=== PATIENT | male | born 1955 | race African-American/Black ===

== ENCOUNTER 2016-10-09 16:06 | Emergency (ER) | payer BC ==
[2016-10-09 16:10] VITALS: BP 116/77
--- NOTE | 2016-10-09 16:38 | UC ---
Respiratory Complaint HPI - HPI Summary HPI Summary: The patient comes in today for: 1. Sinus congestion, rhinitis, body aches, cough, scratchy eyes: Onset: 2 days ago. Palliative/provocative: Nothing makes his symptoms better or worse. Quality: Fullness in sinuses, soreness in throat, and aching joints. Region: Sinuses Severity: 2/10 only with coughing (abdominal pain). Time: Pain in abdomen lasts a few second. Associated symptoms: Fevers: None taken at home. Rhinitis: White. Cough production: White. Dyspnea: Present, Wheezing: NOne. Previous lung disease: None. * - History of Current Complaint Chief Complaint: UCRespiratory Stated Complaint: SINUS CONGESTION Time Seen by Provider: 10/09/16 16:32 Hx Obtained From: Patient - Allergies/Home Medications Allergies/Adverse Reactions: Allergies Allergy/AdvReac Type Severity Reaction Status Date / Time No Known Allergies Allergy Verified 10/09/16 16:09 Home Medications: Home Medications Rosuvastatin Calcium [Crestor] 40 mg PO DAILY 10/09/16 [History Confirmed ] PMH/Surg Hx/FS Hx/Imm Hx Previously Healthy: No Endocrine History: Dyslipidemia Cardiovascular History: Hypertension Psychological History: Depression - Anger management. - Surgical History Surgical History: Yes Surgery Procedure, Year, and Place: Left knee repair. Two cardiac stents. Umbilical Hernia repair - Family History Known Family History: Positive: Hypertension, Diabetes - Social History Occupation: Retired Alcohol Use: Occasionally Alcohol Amount: 1 beer every two days or so. Substance Use Type: None Smoking Status (MU): Current Some Day Smoker Type: Cigars Have You Smoked in the Last Year: Yes Household Exposure Type: Cigars - Immunization History Most Recent Influenza Vaccination: 2009 Most Recent Tetanus Shot: > 10 years Most Recent Pneumonia Vaccination: never Review of Systems Constitutional: Negative Skin: Negative Eyes: Negative ENT: Sore Throat, Nasal Discharge Respiratory: Cough Gastrointestinal: Abdominal Pain Genitourinary: Negative All Other Systems Reviewed And Are Negative: Yes Physical Exam Triage Information Reviewed: Yes Appearance: Well-Appearing, No Pain Distress, Well-Nourished Vital Signs: Initial Vital Signs Temp 99.5 F 10/09/16 16:08 Pulse 95 10/09/16 16:08 Resp 16 10/09/16 16:08 BP 116/77 10/09/16 16:08 Pulse Ox 99 10/09/16 16:08 Vital Signs Reviewed: Yes Eyes: Positive: Conjunctiva Clear. Negative: Discharge ENT: Positive: Hearing grossly normal. Negative: Pharyngeal erythema, Nasal congestion, TM bulging, TM dull, TM red, Tonsillar swelling, Tonsillar exudate Dental: Negative: Gross Decay/Caries @, Dental Fracture @ Neck: Positive: Supple, Nontender, No Lymphadenopathy. Negative: Nuchal Rigidity Respiratory: Positive: Chest non-tender, Lungs clear, No respiratory distress, No accessory muscle use. Negative: Crackles, Wheezing Cardiovascular: Positive: RRR, No Murmur Abdomen Description: Positive: Nontender, No Organomegaly, Soft. Negative: Distended, Guarding Musculoskeletal: Positive: Strength Intact, ROM Intact Neurological: Positive: Alert, Muscle Tone Normal. Negative: Lethargic Psychological: Positive: Age Appropriate Behavior, Consolable Skin: Negative: rashes, breakdown UC Diagnostic Evaluation - Laboratory O2 Sat by Pulse Oximetry: 99 Respiratory Course/Dx - Course Course Of Treatment: Patient told that at this time he most likely has a viral infection. He stated that he would like an antibiotic in the event he gets worse so he does not have to come back for a second appointment. - Differential Dx/Diagnosis Provider Diagnoses: Upper respiratory infection. sinusitis. bronchitis Discharge - Discharge Plan Condition: Stable Disposition: HOME Patient Education Materials: Upper Respiratory Infection (ED) Referrals: Miguel Small MD [Primary Care Provider] - 1 Week
== END 2016-10-09 16:59 | disposition home or self-care (01) ==
LOC: UCEAST 16:06
DX: J06.9 Acute upper respiratory infection, unspecified (principal); J32.9 Chronic sinusitis, unspecified; J40 Bronchitis, not specified as acute or chronic; E78.5 Hyperlipidemia, unspecified; I10 Essential (primary) hypertension
CPT/HCPCS: 99211; G0463

== ENCOUNTER 2017-08-08 22:14 | Emergency (ER) | payer BC ==
[2017-08-08] MEDS ORDERED: NS 0.9% 1000 ML* 1,000 ML IV ONE (23:05)
[2017-08-08 23:45] LABS: ABS Basophils 0.1 10^3/ul (0-0.2); ABS Eosinophils 0 10^3/ul (0-0.6); ABS Lymphocytes 0.4 10^3/ul (1.0-4.8); ABS Monocytes 0.5 10^3/ul (0-0.8); ABS Neutrophils 4.7 10^3/ul (1.5-7.7); ABS Nucleated RBC 0 10^3/ul; Eosinophil % 0.3 % (0-6); Hematocrit 43 % (42-52); Hemoglobin 14.8 g/dl (14.0-18.0); Lymphocyte % 6.3 % (25-47); Mean Corpuscular HGB Conc 34 g/dl (31-36); Mean Corpuscular Hemoglobin 30 pg (27-31); Mean Corpuscular Volume 88 fL (80-94); Mean Platelet Volume 7.5 um3 (7.4-10.4); Nucleated Red Blood Cells % 0; Platelet Count 157 10^3/ul (150-450); Red Blood Count 4.88 10^6/ul (4.0-5.4); Red Cell Distribution Width 13 % (10.5-15); White Blood Count 5.7 10^3/ul (3.5-10.8)
[2017-08-09 00:02] LABS: EGFR Non-African American 52.7 (>60)
[2017-08-09 00:17] VITALS: BP 123/76
[2017-08-09 01:12] LABS: INR 0.99 (0.77-1.02)
--- NOTE | 2017-08-09 02:30 | ED ---
Jose Steele Stephanie, scribed for Olivier Irvin MD on 08/08/17 at 2321 . Complex/Multi-Sys Presentation - HPI Summary HPI Summary: The pt is a 61 y/o M presenting to the ED with c/o syncope that occurred at 12: 00 today. Symptoms include lightheadedness, cough, CP, rhinorrhea, sleep disturbances, nasal congestion, diaphoresis and fever. The pt states he has had flu symptoms for the past 4 days. Per , the pt was unresponsive for 1 minute. When we returned to consciousness, he was dazed. The pt denies prior occurrences of syncope. The pt reports head and cobb trauma with syncope. - History Of Current Complaint Chief Complaint: EDSyncope Time Seen by Provider: 08/08/17 22:29 Hx Obtained From: Patient, Family/Hand Ii Blocker - Onset/Duration: Sudden Onset, Lasting Minutes - 1, Resolved Timing: Intermittent, Lasting:, Minutes - 1 Severity Currently: Mild Associated Signs And Symptoms: Positive: Cough, Chest Pain, Fever, Diaphoresis, Other - lightheadedness, rhinorrhea, sleep disturbances, nasal congestion - Allergies/Home Medications Allergies/Adverse Reactions: Allergies Allergy/AdvReac Type Severity Reaction Status Date / Time No Known Allergies Allergy Verified 08/08/17 22:31 PMH/Surg Hx/FS Hx/Imm Hx Endocrine/Hematology History: Denies: Hx Diabetes, Hx Thyroid Disease Cardiovascular History: Reports: Hx Angina, Hx Coronary Artery Disease - STENT 2009, Hx Hypertension, Hx Myocardial Infarction - 2009 Denies: Hx Hypercholesterolemia, Hx Pacemaker/ICD, Hx Peripheral Vascular Disease Respiratory History: Denies: Hx Asthma, Hx Chronic Obstructive Pulmonary Disease (COPD) GI History: Denies: Hx Ulcer Musculoskeletal History: Denies: Hx Arthritis, Hx Rheumatoid Arthritis, Hx Osteoporosis Sensory History: Reports: Hx Contacts or Glasses Denies: Hx Cataracts, Hx Glaucoma Opthamlomology History: Reports: Hx Contacts or Glasses Denies: Hx Cataracts, Hx Glaucoma Neurological History: Denies: Hx Headaches, Hx Seizures, Hx Transient Ischemic Attacks (TIA) Psychiatric History: Denies: Hx Anxiety, Hx Depression - Surgical History Surgery Procedure, Year, and Place: Left knee repair. Two cardiac stents. Umbilical Hernia repair Hx Anesthesia Reactions: No Infectious Disease History: No Infectious Disease History: Denies: Hx Clostridium Difficile, Hx Hepatitis, Hx Human Immunodeficiency Virus (HIV), Hx of Known/Suspected MRSA, Hx Shingles, Hx Tuberculosis, Hx Known/ Suspected VRE, Hx Known/Suspected VRSA, History Other Infectious Disease, Traveled Outside the [place] in Last 30 Days - Family History Known Family History: Positive: Hypertension, Diabetes - Social History Occupation: Retired Lives: With Family Alcohol Use: Rare Alcohol Amount: 1 beer every two days or so. Hx Substance Use: Yes - alcohol Substance Use Type: Reports: None Hx Tobacco Use: Yes Smoking Status (MU): Current Some Day Smoker Type: Cigars Have You Smoked in the Last Year: Yes Review of Systems Positive: Fever, Skin Diaphoresis, Other - sleep disturbances Positive: Nasal Discharge, Other - nasal congestion Positive: Chest Pain Positive: Cough Neurological: Other - lightheadedness Positive: Syncope All Other Systems Reviewed And Are Negative: Yes Physical Exam - Summary Physical Exam Summary: VITAL SIGNS: Reviewed. GENERAL: Patient is a well-developed and nourished MALE who is lying comfortable in the stretcher. Patient is not in any acute respiratory distress. HEAD AND FACE: No signs of trauma. No ecchymosis, hematomas or skull depressions. No sinus tenderness. EYES: PERRLA, EOMI x 2, No injected conjunctiva, no nystagmus. EARS: Hearing grossly intact. Ear canals and tympanic membranes are within normal limits. MOUTH: Oropharynx within normal limits. NECK: Supple, trachea is midline, no adenopathy, no JVD, no carotid bruit, no c- spine tenderness, neck with full ROM. CHEST: Symmetric, no tenderness at palpation LUNGS: Clear to auscultation bilaterally. No wheezing or crackles. CVS: Regular rate and rhythm, S1 and S2 present, no murmurs or gallops appreciated. ABDOMEN: Soft, non-tender. No signs of distention. No rebound no guarding, and no masses palpated. Bowel sounds are normal. EXTREMITIES: FROM in all major joints, no edema, no cyanosis or clubbing. NEURO: Alert and oriented x 3. No acute neurological deficits. Speech is normal and follows commands. SKIN: Dry and warm Triage Information Reviewed: Yes Vital Signs On Initial Exam: Initial Vitals Temp Pulse Resp BP Pulse Ox 101.8 F 76 20 126/71 100 08/08/17 22:29 08/08/17 22:29 08/08/17 22:29 08/08/17 22:29 08/08/17 22:29 Vital Signs Reviewed: Yes Diagnostics - Vital Signs Vital Signs Temp Pulse Resp BP Pulse Ox 08/08/17 22:35 76 20 100 08/08/17 22:34 126/71 08/08/17 22:29 101.8 F 76 20 126/71 100 - Laboratory Result Diagrams: 08/08/17 23:35 08/08/17 23:35 Lab Statement: Any lab studies that have been ordered have been reviewed, and results considered in the medical decision making process. - Radiology CXR Xray Interpretation: No Acute Changes Radiology Interpretation Completed By: ED Physician - No acute disease. Pending official reading. - EKG 22:46 Cardiac Rate: NL EKG Rhythm: Sinus Rhythm - 80 BPM EKG Interpretation: Normal axis. Normal interval. No ischemic changes Complex Multi-Symp Course/Dx Course Of Treatment: The pt is a 61 y/o M presenting to the ED with c/o syncope that occurred at 12:00 today. The pt presented with cough and he had a brief syncopal episode. EKG nml ,cardiac marker remained nml sinus while in the ED. This is consistent with vasovagal. ED physician discussed low TSH with the pt and advised the pt to follow up with his PCP for thyroid function. - Diagnoses Provider Diagnoses: Vasovagal syncope, Postnasal drip Discharge - Sign-Out/Discharge Documenting (check all that apply): Discharge - Discharge Plan Condition: Stable Disposition: HOME Patient Education Materials: Syncope (ED), Postnasal Drip (DC) Referrals: Miguel Small MD [Primary Care Provider] - 2 Days Additional Instructions: RETURN TO EMERGENCY DEPARTMENT FOR ANY NEW OR WORSENING SYMPTOMS The documentation as recorded by the Jose angeles Stephanie accurately reflects the service I personally performed and the decisions made by , Olivier Irvin MD.
--- NOTE | 2017-08-09 07:32 | RAD ---
INDICATION: Cough. COMPARISON: Comparison is made with a prior study from November 10, 2013. TECHNIQUE: A portable view of the chest was obtained. FINDINGS: Cardiac and mediastinal contours appear to be within normal limits. The lungs are clear. No pleural effusion is seen. IMPRESSION: NO EVIDENCE FOR ACUTE DISEASE.
== END 2017-08-09 01:29 | disposition home or self-care (01) ==
LOC: ED 22:14
DX: R55 Syncope and collapse (principal); R09.82 Postnasal drip; I25.119 Atherosclerotic heart disease of native coronary artery with unspecified angina pectoris; I10 Essential (primary) hypertension; Z95.5 Presence of coronary angioplasty implant and graft; I25.2 Old myocardial infarction; Z72.0 Tobacco use
CPT/HCPCS: 36415; 71045; 80053; 83605; 83735; 84443; 84484; 85025; 85610; 85730; 93005; 96360; 99282

== ENCOUNTER 2018-05-10 14:12 | Emergency (ER) | payer BC ==
[2018-05-10] MEDS ORDERED: Aspirin 81 mg CHEW TAB* 81 MG TAB.CHEW PO ONE (14:20)
[2018-05-10 15:00] LABS: ABS Basophils 0.1 10^3/ul (0-0.2); ABS Eosinophils 0.2 10^3/ul (0-0.6); ABS Lymphocytes 1.8 10^3/ul (1.0-4.8); ABS Monocytes 0.5 10^3/ul (0-0.8); ABS Neutrophils 2.4 10^3/ul (1.5-7.7); ABS Nucleated RBC 0 10^3/ul; Eosinophil % 4.2 %; Hematocrit 48 % (42-52); Hemoglobin 16.4 g/dl (14.0-18.0); Lymphocyte % 36.3 %; Mean Corpuscular HGB Conc 34 g/dl (31-36); Mean Corpuscular Hemoglobin 31 pg (27-31); Mean Corpuscular Volume 90 fL (80-94); Mean Platelet Volume 7.8 fL (7.4-10.4); Nucleated Red Blood Cells % 0.1; Platelet Count 190 10^3/ul (150-450); Red Blood Count 5.32 10^6/ul (4.00-5.40); Red Cell Distribution Width 13 % (10.5-15)
[2018-05-10 15:05] LABS: INR 0.85 (0.77-1.02)
--- NOTE | 2018-05-10 15:08 | ED ---
HPI Chest Pain - HPI Summary HPI Summary: The patient is a 62 y/o M presenting to [facility] with a chief complaint of sudden onset diffuse chest tightness starting two days ago. The pain, which is currently rated 1/10 in severity, is not aggravated by exertion. He reports that the burning sensation is similar to when he had an OK, although the pain is more intermittent. He denies associated nausea, vomiting, diaphoresis, and dizziness. He had a stent placed after the OK, and he takes Aspirin and Metoprolol. Hx of HTN. He reports some current smoking, no substance use, and rare EtOH. - History of Current Complaint Chief Complaint: EDChestPainROMI Time Seen by Provider: 05/10/18 14:38 Hx Obtained From: Patient Onset/Duration: Started Days Ago - two days, Still Present Timing: Intermittent Initial Severity: Moderate Current Severity: Mild Pain Intensity: 1 Pain Scale Used: 0-10 Numeric Chest Pain Location: Diffuse Chest Pain Radiates: No Character: Burning Aggravating Factor(s): Nothing Alleviating Factor(s): Nothing Associated Signs and Symptoms: Negative: Dizziness, Diaphoresis, Nausea, Vomiting - Allergy/Home Medications Allergies/Adverse Reactions: Allergies Allergy/AdvReac Type Severity Reaction Status Date / Time No Known Allergies Allergy Verified 08/08/17 22:31 PMH/Surg Hx/FS Hx/Imm Hx Endocrine/Hematology History: Denies: Hx Diabetes, Hx Thyroid Disease Cardiovascular History: Reports: Hx Angina, Hx Coronary Artery Disease - STENT 2009, Hx Hypertension, Hx Myocardial Infarction - 2009 Denies: Hx Hypercholesterolemia, Hx Pacemaker/ICD, Hx Peripheral Vascular Disease Respiratory History: Denies: Hx Asthma, Hx Chronic Obstructive Pulmonary Disease (COPD) GI History: Denies: Hx Ulcer Musculoskeletal History: Denies: Hx Arthritis, Hx Rheumatoid Arthritis, Hx Osteoporosis Sensory History: Reports: Hx Contacts or Glasses Denies: Hx Cataracts, Hx Glaucoma Opthamlomology History: Reports: Hx Contacts or Glasses Denies: Hx Cataracts, Hx Glaucoma Neurological History: Denies: Hx Headaches, Hx Seizures, Hx Transient Ischemic Attacks (TIA) Psychiatric History: Denies: Hx Anxiety, Hx Depression - Surgical History Surgery Procedure, Year, and Place: Left knee repair. Two cardiac stents. Umbilical Hernia repair Hx Anesthesia Reactions: No Infectious Disease History: No Infectious Disease History: Denies: Hx Clostridium Difficile, Hx Hepatitis, Hx Human Immunodeficiency Virus (HIV), Hx of Known/Suspected MRSA, Hx Shingles, Hx Tuberculosis, Hx Known/ Suspected VRE, Hx Known/Suspected VRSA, History Other Infectious Disease, Traveled Outside the [place] in Last 30 Days - Family History Known Family History: Positive: Hypertension, Diabetes - Social History Alcohol Use: None Alcohol Amount: 1 beer every two days or so. Hx Substance Use: Yes - alcohol Substance Use Type: Reports: None Hx Tobacco Use: Yes Smoking Status (MU): Light Every Day Tobacco Smoker Type: Cigars Have You Smoked in the Last Year: Yes Review of Systems Negative: Skin Diaphoresis Positive: Chest Pain - tightness with burning sensation Negative: Vomiting, Nausea Neurological: Other - NEGATIVE: dizziness All Other Systems Reviewed And Are Negative: Yes Physical Exam - Summary Physical Exam Summary: VITAL SIGNS: Reviewed. GENERAL: Patient is a well-developed and nourished male who is lying comfortable in the stretcher. Patient is not in any acute respiratory distress. HEAD AND FACE: No signs of trauma. No ecchymosis, hematomas or skull depressions. No sinus tenderness. EYES: PERRLA, EOMI x 2, No injected conjunctiva, no nystagmus. EARS: Hearing grossly intact. Ear canals and tympanic membranes are within normal limits. MOUTH: Oropharynx within normal limits. NECK: Supple, trachea is midline, no adenopathy, no JVD, no carotid bruit, no c- spine tenderness, neck with full ROM. CHEST: Symmetric, no tenderness at palpation LUNGS: Clear to auscultation bilaterally. No wheezing or crackles. CVS: Regular rate and rhythm, S1 and S2 present, no murmurs or gallops appreciated. ABDOMEN: Soft, non-tender. No signs of distention. No rebound no guarding, and no masses palpated. Bowel sounds are normal. EXTREMITIES: FROM in all major joints, no edema, no cyanosis or clubbing. NEURO: Alert and oriented x 3. No acute neurological deficits. Speech is normal and follows commands. SKIN: Dry and warm Triage Information Reviewed: Yes Vital Signs On Initial Exam: Initial Vitals Temp Pulse Resp BP Pulse Ox 97.8 F 72 18 149/85 99 05/10/18 14:23 05/10/18 14:23 05/10/18 14:23 05/10/18 14:23 05/10/18 14:23 Vital Signs Reviewed: Yes Diagnostics - Vital Signs Vital Signs Temp Pulse Resp BP Pulse Ox 05/10/18 14:23 97.8 F 72 18 149/85 99 - Laboratory Result Diagrams: 05/10/18 14:48 05/10/18 14:48 Lab Statement: Any lab studies that have been ordered have been reviewed, and results considered in the medical decision making process. - Radiology CXR Radiology Interpretation Completed By: Radiologist Summary of Radiographic Findings: No active cardiopulmonary disease is noted. ED physician has reviewed this report. - EKG 14:14 Cardiac Rate: NL - 64 BPM EKG Rhythm: Sinus Rhythm Summary of EKG Findings: No ST elevations. Re-Evaluation - Re-Evaluation First Eval Re-Evaluation Time: 18:20 Change: Improved Comment: I spoke with the patient concerning results and discharge home. Chest Pain Course/Dx - Course Course Of Treatment: The patient was found to have increased BP in the ED. The patient will follow up with PCP for better control of BP. Assessment/Plan: The patient is a 62 y/o M presenting to [facility] with a chief complaint of sudden onset diffuse chest tightness starting two days ago. The pain, which is currently rated 1/10 in severity, is not aggravated by exertion. He reports that the burning sensation is similar to when he had an OK, although the pain is more intermittent. He denies associated nausea, vomiting, diaphoresis, and dizziness. He had a stent placed after the OK, and he takes Aspirin and Metoprolol. Hx of HTN. He reports some current smoking, no substance use, and rare EtOH. Blood work without any significant abnormality. Troponin is 0.00. Chest x-ray impression: no active cardiopulmonary disease noted. Second troponin 4 hours later is also 0.00. All the patients symptoms have resolved. The patient is not symptomatic. Heart score is 2 which is a lawsuit suspicion for acute, syndrome. I discussed all the findings and test results with the patient. Patient was instructed to return to the emergency room immediately if any of the symptoms return or worsens. Plan of care was discussed with the patient and understands and agrees. All questions were answered at patient satisfaction. There were no further complaints or concerns. Lung exam before discharge: CTA B/L. Good air exchange. No wheezing or crackles heard. CVS: S1 and S2 present. No murmurs appreciated. Patient is alert and oriented x 3. Patient is hemodynamically stable. Patient will be discharged home with follow up PCP in the next 2-3 days - Chest Pain Differential Diagnosis/HQI/PQRI: Acute OK, ACS, Angina, CHF, Chest Wall, GI Disease, Lower Respiratory Infection - Diagnoses Provider Diagnoses: Chest pain Discharge - Sign-Out/Discharge Documenting (check all that apply): Patient Departure - Patient will be discharged home. - Discharge Plan Condition: Stable Disposition: HOME Patient Education Materials: Chest Pain (ED) Referrals: Miguel Small MD [Primary Care Provider] - 3 Days Additional Instructions: FOLLOW UP WITH YOUR PRIMARY CARE PROVIDER WITHIN 2-3 DAYS FOR HIGH BLOOD PRESSURE NOTED TODAY. RETURN TO THE ED FOR ANY WORSENING OR NEW SYMPTOMS. - Billing Disposition and Condition Condition: STABLE Disposition: Home - Attestation Statements Document Initiated by Laney: Yes Documenting Scribe: Reyna Lockett Provider For Whom Laney is Documenting (Include Credential): Dr. Kiko Gleason MD Scribe Attestation: Reyna Steele scribed for Dr. Kiko Gleason MD on 05/10/18 at 1826. Scribe Documentation Reviewed: Yes Provider Attestation: The documentation as recorded by the Reyna angeles accurately reflects the service I personally performed and the decisions made by me, Dr. Kiko Gleason MD Status of Scrbrandi Document: Viewed
[2018-05-10 15:25] LABS: Albumin 4.5 g/dL (3.2-5.2); Albumin/Globulin Ratio 1.6 (1-3); BUN/Creatinine Ratio 14.3 (8-20); Calcium 9.3 mg/dL (8.6-10.3); EGFR Non-African American 66.9 (>60); Globulin 2.8 g/dL (2-4); Potassium 4.1 mmol/L (3.5-5.0); Total Bilirubin 0.3 mg/dL (0.2-1.0); Total Protein 7.3 g/dL (6.4-8.9)
[2018-05-10 18:25] VITALS: BP 134/85
== END 2018-05-10 18:26 | disposition home or self-care (01) ==
LOC: ED 14:12
DX: R07.9 Chest pain, unspecified (principal); I25.2 Old myocardial infarction; I10 Essential (primary) hypertension; I25.10 Atherosclerotic heart disease of native coronary artery without angina pectoris; F17.299 Nicotine dependence, other tobacco product, with unspecified nicotine-induced disorders
CPT/HCPCS: 36415; 71046; 80053; 83605; 83880; 84484; 85025; 85610; 93005; 99283; A9270-GY

== ENCOUNTER 2018-08-07 19:52 | Emergency (ER) | payer BC ==
[2018-08-07 22:59] LABS: ABS Basophils 0 10^3/ul (0-0.2); ABS Eosinophils 0 10^3/ul (0-0.6); ABS Lymphocytes 1.1 10^3/ul (1.0-4.8); ABS Monocytes 0.5 10^3/ul (0-0.8); ABS Neutrophils 7.2 10^3/ul (1.5-7.7); ABS Nucleated RBC 0 10^3/ul; Eosinophil % 0.3 %; Hematocrit 46 % (36-46); Hemoglobin 15.5 g/dL (14.0-18.0); Lymphocyte % 12.4 %; Mean Corpuscular HGB Conc 34 g/dL (31-36); Mean Corpuscular Hemoglobin 31 pg (27-31); Mean Corpuscular Volume 91 fL (80-94); Mean Platelet Volume 7.9 fL (7.4-10.4); Nucleated Red Blood Cells % 0.1; Platelet Count 184 10^3/uL (150-450); Red Blood Count 5.06 10^6 /uL (4.18-5.48); Red Cell Distribution Width 14 % (10.5-15); White Blood Count 8.9 10^3/uL (3.5-10.8)
[2018-08-07 23:06] LABS: INR 0.87 (0.77-1.02)
[2018-08-07 23:15] LABS: Albumin 4.3 g/dL (3.2-5.2); Albumin/Globulin Ratio 1.5 (1-3); BUN/Creatinine Ratio 14.2 (8-20); Calcium 9.5 mg/dL (8.6-10.3); EGFR Non-African American 57.8 (>60); Globulin 2.8 g/dL (2-4); Magnesium 2.2 mg/dL (1.9-2.7); Potassium 4.5 mmol/L (3.5-5.0); Total Bilirubin 0.3 mg/dL (0.2-1.0); Total Protein 7.1 g/dL (6.4-8.9)
[2018-08-07 23:47] LABS: TSH (Thyroid Stimulating Horm) 0.54 mcIU/mL (0.34-5.60)
[2018-08-08] MEDS ORDERED: Iodixanol* (CONTRAST) 320 MG/ML 100 ML SDV IV ONE (00:32)
--- NOTE | 2018-08-08 01:55 | ED ---
Syncope/Near Syncope - HPI Summary HPI Summary: 62-year-old male presents with syncope today. He states that he went fishing and when came back he sat on a bench. He states that he felt very woozy and nauseous. He states that he got tunnel vision and then passed out for a couple seconds. States when he came back to he vomited. He states he is not feeling lightheaded anymore. He denies any chest pain or shortness of breath. No palpitations. No abdominal pain. no other symptoms. had normal stress test a year ago per patient. - History Of Current Complaint Chief Complaint: EDSyncope Time Seen by Provider: 08/07/18 22:30 - Allergies/Home Medications Allergies/Adverse Reactions: Allergies Allergy/AdvReac Type Severity Reaction Status Date / Time No Known Allergies Allergy Verified 08/07/18 19:56 PMH/Surg Hx/FS Hx/Imm Hx Endocrine/Hematology History: Denies: Hx Diabetes, Hx Thyroid Disease Cardiovascular History: Reports: Hx Angina, Hx Coronary Artery Disease - STENT 2009, Hx Hypertension, Hx Myocardial Infarction - 2009 Denies: Hx Hypercholesterolemia, Hx Pacemaker/ICD, Hx Peripheral Vascular Disease Respiratory History: Denies: Hx Asthma, Hx Chronic Obstructive Pulmonary Disease (COPD) GI History: Denies: Hx Ulcer Musculoskeletal History: Denies: Hx Arthritis, Hx Rheumatoid Arthritis, Hx Osteoporosis Sensory History: Reports: Hx Contacts or Glasses Denies: Hx Cataracts, Hx Glaucoma Opthamlomology History: Reports: Hx Contacts or Glasses Denies: Hx Cataracts, Hx Glaucoma Neurological History: Denies: Hx Headaches, Hx Seizures, Hx Transient Ischemic Attacks (TIA) Psychiatric History: Denies: Hx Anxiety, Hx Depression - Surgical History Surgery Procedure, Year, and Place: Left knee repair. Two cardiac stents. Umbilical Hernia repair Hx Anesthesia Reactions: No Infectious Disease History: No Infectious Disease History: Denies: Hx Clostridium Difficile, Hx Hepatitis, Hx Human Immunodeficiency Virus (HIV), Hx of Known/Suspected MRSA, Hx Shingles, Hx Tuberculosis, Hx Known/ Suspected VRE, Hx Known/Suspected VRSA, History Other Infectious Disease, Traveled Outside the [place] in Last 30 Days - Family History Known Family History: Positive: Hypertension, Diabetes - Social History Alcohol Use: Occasionally Alcohol Amount: 1 beer every two days or so. Hx Substance Use: Yes - alcohol Substance Use Type: Reports: None Hx Tobacco Use: Yes Smoking Status (MU): Light Every Day Tobacco Smoker Type: Cigars Have You Smoked in the Last Year: Yes Review of Systems Negative: Fever Negative: Chest Pain Negative: Shortness Of Breath Positive: Syncope All Other Systems Reviewed And Are Negative: Yes Physical Exam Triage Information Reviewed: Yes Vital Signs On Initial Exam: Initial Vitals Temp Pulse Resp BP Pulse Ox 97.1 F 72 16 90/64 96 08/07/18 19:55 08/07/18 19:55 08/07/18 19:55 08/07/18 19:55 08/07/18 19:55 Vital Signs Reviewed: Yes Appearance: Positive: Well-Appearing Skin: Positive: Warm, Dry Head/Face: Positive: Normal Head/Face Inspection Eyes: Positive: Normal, EOMI, JOEY, Conjunctiva Clear ENT: Positive: Normal ENT inspection, Pharynx normal, TMs normal Respiratory/Lung Sounds: Positive: Clear to Auscultation, Breath Sounds Present Cardiovascular: Positive: Normal, RRR Abdomen Description: Positive: Nontender, Soft Bowel Sounds: Positive: Present Musculoskeletal: Positive: Normal Neurological: Positive: Sensory/Motor Intact, Alert, Oriented to Person Place, Time, CN Intact II-III Psychiatric: Positive: Normal Diagnostics - Vital Signs Vital Signs Temp Pulse Resp BP Pulse Ox 08/08/18 01:06 64 22 115/73 95 08/08/18 01:00 68 24 95 08/08/18 00:36 66 24 138/73 96 08/08/18 00:03 95 08/08/18 00:00 65 23 95 08/07/18 23:44 70 19 96 08/07/18 23:36 67 23 132/77 96 08/07/18 23:06 72 23 136/84 97 08/07/18 23:00 66 24 97 08/07/18 22:36 74 22 119/72 93 08/07/18 22:06 65 18 122/71 96 08/07/18 19:55 97.1 F 72 16 90/64 96 - Laboratory Lab Results: Lab Results 08/07/18 08/07/18 08/07/18 Range/Units 22:53 22:53 22:53 WBC 8.9 (3.5-10.8) 10^3/uL RBC 5.06 (4.18-5.48) 10^6 /uL Hgb 15.5 (14.0-18.0) g/dL Hct 46 (36-46) % MCV 91 (80-94) fL MCH 31 (27-31) pg MCHC 34 (31-36) g/dL RDW 14 (10.5-15) % Plt Count 184 (150-450) 10^3/uL MPV 7.9 (7.4-10.4) fL Neut % (Auto) 81.1 % Lymph % (Auto) 12.4 % [place] % (Auto) 5.8 % Eos % (Auto) 0.3 % Baso % (Auto) 0.4 % Absolute Neuts (auto) 7.2 (1.5-7.7) 10^3/ul Absolute Lymphs (auto) 1.1 (1.0-4.8) 10^3/ul Absolute Monos (auto) 0.5 (0-0.8) 10^3/ul Absolute Eos (auto) 0 (0-0.6) 10^3/ul Absolute Basos (auto) 0 (0-0.2) 10^3/ul Absolute Nucleated RBC 0 10^3/ul Nucleated RBC % 0.1 INR (Anticoag Therapy) (0.77-1.02) D-Dimer, Quantitative (Less Than 230) ng/mL Sodium 138 (135-145) mmol/L Potassium 4.5 (3.5-5.0) mmol/L Chloride 106 (101-111) mmol/L Carbon Dioxide 27 (22-32) mmol/L Anion Gap 5 (2-11) mmol/L BUN 18 (6-24) mg/dL Creatinine 1.27 H (0.67-1.17) mg/dL Est GFR ( Amer) 70.0 (>60) Est GFR (Non-Af Amer) 57.8 (>60) BUN/Creatinine Ratio 14.2 (8-20) Glucose 139 H (70-100) mg/dL Lactic Acid 1.7 (0.5-2.0) mmol/L Calcium 9.5 (8.6-10.3) mg/dL Magnesium 2.2 (1.9-2.7) mg/dL Total Bilirubin 0.30 (0.2-1.0) mg/dL AST 21 (13-39) U/L ALT 23 (7-52) U/L Alkaline Phosphatase 67 (34-104) U/L Troponin I 0.00 (<0.04) ng/mL Total Protein 7.1 (6.4-8.9) g/dL Albumin 4.3 (3.2-5.2) g/dL Globulin 2.8 (2-4) g/dL Albumin/Globulin Ratio 1.5 (1-3) TSH 0.54 (0.34-5.60) mcIU/mL 08/07/18 Range/Units 22:53 WBC (3.5-10.8) 10^3/uL RBC (4.18-5.48) 10^6 /uL Hgb (14.0-18.0) g/dL Hct (36-46) % MCV (80-94) fL MCH (27-31) pg MCHC (31-36) g/dL RDW (10.5-15) % Plt Count (150-450) 10^3/uL MPV (7.4-10.4) fL Neut % (Auto) % Lymph % (Auto) % [place] % (Auto) % Eos % (Auto) % Baso % (Auto) % Absolute Neuts (auto) (1.5-7.7) 10^3/ul Absolute Lymphs (auto) (1.0-4.8) 10^3/ul Absolute Monos (auto) (0-0.8) 10^3/ul Absolute Eos (auto) (0-0.6) 10^3/ul Absolute Basos (auto) (0-0.2) 10^3/ul Absolute Nucleated RBC 10^3/ul Nucleated RBC % INR (Anticoag Therapy) 0.87 (0.77-1.02) D-Dimer, Quantitative 261 H (Less Than 230) ng/mL Sodium (135-145) mmol/L Potassium (3.5-5.0) mmol/L Chloride (101-111) mmol/L Carbon Dioxide (22-32) mmol/L Anion Gap (2-11) mmol/L BUN (6-24) mg/dL Creatinine (0.67-1.17) mg/dL Est GFR ( Amer) (>60) Est GFR (Non-Af Amer) (>60) BUN/Creatinine Ratio (8-20) Glucose (70-100) mg/dL Lactic Acid (0.5-2.0) mmol/L Calcium (8.6-10.3) mg/dL Magnesium (1.9-2.7) mg/dL Total Bilirubin (0.2-1.0) mg/dL AST (13-39) U/L ALT (7-52) U/L Alkaline Phosphatase (34-104) U/L Troponin I (<0.04) ng/mL Total Protein (6.4-8.9) g/dL Albumin (3.2-5.2) g/dL Globulin (2-4) g/dL Albumin/Globulin Ratio (1-3) TSH (0.34-5.60) mcIU/mL Result Diagrams: 08/07/18 22:53 08/07/18 22:53 Lab Statement: Any lab studies that have been ordered have been reviewed, and results considered in the medical decision making process. - CT cta CT Interpretation Completed By: Radiologist Summary of CT Findings: IMPRESSION: Negative CTA chest. No pulmonary embolism is identified. - EKG No standard instances Cardiac Rate: NL EKG Rhythm: Sinus Rhythm EKG Comparison: No Significant Change Summary of EKG Findings: sinus rhythm Course/Dx Course Of Treatment: 62-year-old male presents with syncope today. He states that he went fishing and when came back he sat on a bench. He states that he felt very woozy and nauseous. He states that he got tunnel vision and then passed out for a couple seconds. States when he came back to he vomited. He states he is not feeling lightheaded anymore. He denies any chest pain or shortness of breath. No palpitations. No abdominal pain. no other symptoms. On exam has normal neuro exam. EKG shows sinus rhythm. Troponin negative. D- dimer slightly elevated so got CTA. CTA normal. Patient denies any symptoms while in ED. We'll discharge have follow up primary. Patient understands agrees with plan. - Diagnoses Differential Diagnosis/HQI/PQRI: Positive: Coronary Artery Disease, Hypoglycemia , Hypovolemia, Pulmonary Embolism Provider Diagnoses: Syncope Discharge - Sign-Out/Discharge Documenting (check all that apply): Patient Departure Patient Received Moderate/Deep Sedation with Procedure: No - Discharge Plan Condition: Good Disposition: HOME Patient Education Materials: Syncope (ED) Referrals: Miguel Small MD [Primary Care Provider] - Additional Instructions: follow up with primary within 5 days Return to ED if develop any chest pain, SOB, or any new or worsening symptoms - Billing Disposition and Condition Condition: GOOD Disposition: Home
[2018-08-08 02:00] VITALS: BP 130/90
== END 2018-08-08 01:59 | disposition home or self-care (01) ==
LOC: ED 19:52
DX: R55 Syncope and collapse (principal); I10 Essential (primary) hypertension; I25.10 Atherosclerotic heart disease of native coronary artery without angina pectoris; I25.2 Old myocardial infarction; F17.210 Nicotine dependence, cigarettes, uncomplicated; Z95.5 Presence of coronary angioplasty implant and graft
CPT/HCPCS: 36415; 71275; 80053; 83605; 83735; 84443; 84484; 85025; 85379; 85610; 93005; 99283; Q9967

== ENCOUNTER 2018-11-09 05:43 | Inpatient (IN) | payer BC ==
--- NOTE | 2018-11-06 17:53 | HP ---
HISTORY AND PHYSICAL: DATE OF ADMISSION/SURGERY: 11/09/18 DATE OF OFFICE VISIT: 11/06/18 SURGEON: Elisa Davila MD * (DICTATED BY DAPHNE CARUSO) PROCEDURE: Left total hip arthroplasty. CHIEF COMPLAINT: Left hip pain. HISTORY OF PRESENT ILLNESS: Mr. Angelo is a 63-year-old gentleman with end- stage osteoarthritis of the left hip. He has failed conservative treatment and elected to proceed with a left total hip arthroplasty. PAST MEDICAL HISTORY: Hypertension, coronary artery disease, anxiety, high cholesterol, BPH, and a prior RI. PAST SURGICAL HISTORY: Hernia repair, left knee arthroscopy, and heart stent placement. CURRENT MEDICATIONS: 1. Rosuvastatin calcium 40 mg a day. 2. Lisinopril 10 mg a day. 3. Aspirin 81 mg a day. 4. Lexapro 20 mg a day. ALLERGIES: No known drug allergies. FAMILY HISTORY: Coronary artery disease, stroke, and MS. SOCIAL HISTORY: He is a 63-year-old gentleman, lives with his spouse. He smokes 1 to 2 cigars per day. Denies use of drugs. REVIEW OF SYSTEMS: A complete 14-point review of systems was reviewed with the patient. It was all negative or noncontributory. He denies history of DVT, PE , hepatitis, HIV, or anesthesia problems. PHYSICAL EXAMINATION GENERAL: He is well developed, well nourished, in no acute distress. VITAL SIGNS: He stands 5 feet 6 inches tall, weighs 173 pounds. His blood pressure is 118/78, his heart rate is 84. HEENT: Normocephalic, atraumatic. NECK: Supple. No palpable lymph nodes. PULMONARY: The lungs are clear to auscultation bilaterally. CARDIO: Regular rate and rhythm. Strong S1, S2. ABDOMEN: Soft, nontender, nondistended. NEUROLOGICAL: He is alert and oriented x3. MUSCULOSKELETAL: Left lower extremity: The skin is intact. There are no open wounds or abrasions. He walks with an antalgic-type gait favoring his left hip. He has decreased internal and external rotation of the left hip. He has a 2+ dorsalis pedis pulse. He is able to dorsiflex and plantarflex. ASSESSMENT AND PLAN: Mr. Angelo is a 63-year-old gentleman with severe end- stage osteoarthritis of the left hip. He has failed conservative treatment and elected to proceed with a left total hip arthroplasty. The surgery is scheduled for 11/09/[address] Davila discussed the risks and benefits of the surgery at today's visit and all of his questions were answered. He will follow up with Dr. Davila 2 weeks after the surgery. DAPHNE CARUSO [id number]/[facility] #: [id number] AROLDO
[~2018-11-09 05:43] MED LIST: Buffered Lidocaine 1% SYRIN* 1 ML/SYRINGE INTRADERM ONE; Tranexamic Acid 1,000 MG in NS 0.9% 50 ML* (outpatient use) IV SCH
--- OUTSIDE RECORDS SUMMARY | 2018-11-09 05:47 | XMS REPORT | Continuity of Care Document ---
:1955 External Reference #:[id number] Author Name Chaya Gutierrez Care Team Providers Name Role Phone Miguel Small MD Primary Care Physician Unavailable Payers Date Identification Numbers Payment Provider Subscriber Expires: 2013 Policy Number: [id number] [facility] Aneudy Ewing PayID: [id number] [address] [place] [address] Policy Number: [id number] [facility] Aneudy Ewing PayID: [id number] [address] [place] [address] Problems Active Problems Provider Date Localized, primary osteoarthritis of the pelvic Elisamachelle Davila M.D. Onset: region and thigh Old myocardial infarction Jyoti Holden M.D. Onset: 08/20/2016 Essential hypertension Jyoti Holden M.D. Onset: 06/04/2016 Tobacco user Jyoti Holden M.D. Onset: 02/05/2013 Benign essential hypertension Jyoti Holden M.D. Onset: 02/05/2013 Pure hypercholesterolemia Jyoti Holden M.D. Onset: 02/05/2013 Coronary arteriosclerosis Jyoti Holden M.D. Onset: 02/05/2013 Family History Date Family Member(s) Observation Comments General Diabetes Father [place] : (age 51 Years) Father due to [place] Mother Hypertension Mother Alive And Well Siblings 3 sisters, alive healthy no known CAD Siblings 1 brother age 42 No Known CAD Social History Type Date Description Comments Sex Unknown Marital Status Occupation Retired Occupation Teacher Tobacco Use Start: Unknown Former Cigarette Smoker Currently smokes End: Unknown cigars Smoking Status Reviewed: 11/06/18 Former Cigarette Smoker Currently smokes cigars ETOH Use Occasionally consumes alcohol Tobacco Use Start: Unknown Patient is a current smokes 2 cigars per smoker, smokes every day day Recreational Drug Use Denies Drug Use Exercise Type/Frequency Exercises sporadically Exercise Type/Frequency Walking few times week, 1 mile Allergies, Adverse Reactions, Alerts Active Allergies Reaction Severity Comments Date NKDA 06/04/2016 Environmental rag weed 02/05/2013 Medications Active Medications SIG Qnty Indications Ordering Provider Date Rosuvastatin Calcium 1 by mouth 90tabs Jyoti Holden M.D. 09/02/2016 40mg every day Tablets Lexapro 1 1/2 tabs PO 30tabs Unknown 20mg Tablets qd Lisinopril 1 by mouth Unknown 10mg Tablets every day Aspir-Low 1 by mouth Unknown 81mg Tablets DR every day History Medications Crestor 1 by mouth every 30tabs Jyoti Holden M.D. 09/02/2016 - 40mg Tablets day 09/02/2016 Simvastatin 1 tab by mouth 90tabs Jyoti Holden M.D. 01/10/2013 - 40mg every day 09/02/2016 Tablets Metoprolol Tartrate 1 po daily 180tabs Jyoti Holden M.D. 09/11/2012 - 10/04/2017 25mg Tablets Lisinopril 1 by mouth every 90tabs Jyoti Holden M.D. 02/15/2012 - 10mg Tablets day (pt no 09/21/2018 longer taking) Wellbutrin SR 1 po bid 180tabs Unknown - 150mg 02/05/2013 Tablets ER 12HR Plavix 1 po qd 30tabs Unknown - 75mg Tablets 02/05/2013 Nitrostat one sl q5min up 25tabs Unknown - 0.4mg Tablets to 3 doses prn 02/05/2013 Sub Aspirin 1 po qd Unknown - 81mg Tablets 09/21/2018 Simvastatin Unknown - 10/26/2018 Simvastatin 1 by mouth every Unknown - 40mg day 11/05/2018 Tablets Vital Signs Date Vital Result Comment 11/06/2018 11:54am Height 66.5 inches 5'6.50" Weight 173.00 lb BP Systolic 118 mmHg BP Diastolic 78 mmHg Body Temperature 97.7 F BMI (Body Mass Index) 27.5 kg/m2 10/27/2018 12:51pm Height 66.5 inches 5'6.50" Weight 174.00 lb Clothes/shoes Heart Rate 68 /min Radial BP Systolic Sitting 122 mmHg Lue reg cuff sit BP Diastolic Sitting 74 mmHg Lue reg cuff sit BP Systolic Standing 120 mmHg Lue reg cuff std BP Diastolic Standing 70 mmHg Lue reg cuff std BMI (Body Mass Index) 27.7 kg/m2 Ejection Fraction 55-60% Echo 09/30/2017 09/22/2018 2:41pm Height 66.5 inches 5'6.50" Weight 174.00 lb Heart Rate 72 /min BP Systolic 120 mmHg BP Diastolic 82 mmHg Respiratory Rate 16 /min Body Temperature 97.5 F Pain Level 3 BMI (Body Mass Index) 27.7 kg/m2 10/07/2017 1:43pm Height 66.5 inches 5'6.50" Weight 171.50 lb with shoes Heart Rate 68 /min BP Systolic Sitting 124 mmHg Rue reg cuff BP Diastolic Sitting 86 mmHg Rue reg cuff BP Systolic Standing 120 mmHg Rue reg cuff BP Diastolic Standing 84 mmHg Rue reg cuff Respiratory Rate 15 /min BMI (Body Mass Index) 27.3 kg/m2 Ejection Fraction 55-60% 09/30/2017-echo 08/20/2016 8:22am Height 66.5 inches 5'6.50" Weight 171.00 lb No shoes Heart Rate 66 /min BP Systolic Sitting 120 mmHg Rue reg cuff BP Diastolic Sitting 88 mmHg Rue reg cuff BP Systolic Standing 122 mmHg Rue reg cuff BP Diastolic Standing 84 mmHg Rue reg cuff Respiratory Rate 16 /min BMI (Body Mass Index) 27.2 kg/m2 Ejection Fraction 50-55% 10/28/2009-ech 06/04/2016 1:29pm Height 66.5 inches 5'6.50" Weight 166.00 lb w/o shoes Heart Rate 56 /min reg BP Systolic 130 mmHg Lue, reg cuff BP Diastolic 90 mmHg Lue, reg cuff BP Systolic Sitting 124 mmHg Rue, reg cuff BP Diastolic Sitting 88 mmHg Rue, reg cuff BP Systolic Standing 124 mmHg Rue BP Diastolic Standing 84 mmHg Rue Respiratory Rate 16 /min BMI (Body Mass Index) 26.4 kg/m2 Ejection Fraction 50-55% as of 10/28/09 echo 02/05/2013 2:59pm Height 66.50 inches 5'6.50" Weight 161.00 lb without shoes Heart Rate 5650 /min sit and stand HR reg BP Systolic Sitting 120 mmHg R arm reg cuff BP Diastolic Sitting 86 mmHg R arm reg cuff BP Systolic Standing 116 mmHg R arm reg cuff BP Diastolic Standing 80 mmHg R arm reg cuff Respiratory Rate 16 /min BMI (Body Mass Index) 25.6 kg/m2 Results Test Date Facility Test Result H/L Range Note Inr/Protime 10/27/2018 [facility] Inr 0.91 N 0.82-1.[address] [place] [address] [phone] Laboratory test 10/27/2018 [facility] Partial 34.0 seconds N 26.0-38.[address] [place] [address] PTT [phone] CBC Auto Diff 10/27/2018 [facility] White Blood 4.8 10^3/uL N 3.5-10.[address] [place] [address] [phone] Red Blood Count 5.43 10^6/uL N 4.18-5.48 Hemoglobin 16.4 g/dL N 14.0-18.0 Hematocrit 49 % N 42-52 Mean Corpuscular Volume 91 fL N 80-94 Mean Corpuscular Hemoglobin 30 pg N 27-31 Mean Corpuscular HGB Conc 33 g/dL N 31-36 Red Cell Distribution Width 13 % N 10-15 Platelet Count 185 10^3/uL N 150-450 Mean Platelet Volume 8.0 fL N 7.4-10.4 Abs Neutrophils 2.6 10^3/uL N 1.5-7.7 Abs Lymphocytes 1.4 10^3/uL N 1.0-4.8 Abs Monocytes 0.5 10^3/uL N 0-0.8 Abs Eosinophils 0.2 10^3/uL N 0-0.6 Abs Basophils 0.1 10^3/uL N 0-0.2 Abs Nucleated RBC 0.0 10^3/uL Granulocyte % 54.2 % Lymphocyte % 28.6 % Monocyte % 11.2 % Eosinophil % 4.8 % Basophil % 1.2 % Nucleated Red Blood Cells % 0.1 Comp Metabolic Panel 10/27/2018 [facility] Sodium 139 mmol/L N 135-[address] [place] [address] [phone] Potassium 4.4 mmol/L N 3.5-5.0 Chloride 105 mmol/L N 101-111 Co2 Carbon Dioxide 26 mmol/L N 22-32 Anion Gap 8 mmol/L N 2-11 Glucose 85 mg/dL N 70-100 Blood Urea Nitrogen 16 mg/dL N 6-24 Creatinine 1.15 mg/dL N 0.67-1.17 BUN/Creatinine Ratio 13.9 N 8-20 Calcium 9.8 mg/dL N 8.6-10.3 Total Protein 7.1 g/dL N 6.4-8.9 Albumin 4.4 g/dL N 3.2-5.2 Globulin 2.7 g/dL N 2-4 Albumin/Globulin Ratio 1.6 N 1-3 Total Bilirubin 0.60 mg/dL N 0.2-1.0 Alkaline Phosphatase 80 U/L N 34-104 Alt 25 U/L N 7-52 Ast 25 U/L N 13-39 Egfr Non- 64.7 >60 Egfr 78.2 >60 2 Urinalysis Profile 10/27/2018 [facility] Urine Color Yellow [address] [place] [address] [phone] Urine Appearance Clear Urine Specific [place] 1.016 N 1.010-1.030 Urine pH 5.0 N 5-9 Urine Urobilinogen Negative Negative Urine Ketones Negative Negative Urine Protein Negative Negative Urine Leukocytes Negative Negative Urine Blood 1+ Abnormal Negative Urine Nitrite Negative Negative Urine Bilirubin Negative Negative Urine Glucose Negative Negative Urine White Blood Cell Trace(0-5/hpf) Absent Urine Red Blood Cell 2+(6-10/hpf) Abnormal Absent Urine Bacteria Absent Absent Type & Screen 10/27/2018 [facility] Patient Blood Type B Negative [address] [place] [address] [phone] Antibody Screen NEGATIVE Urine Culture And 10/27/2018 [facility] Urine Culture SEE RESULT [address] [place] [address] [phone] Lipid Profile 10/27/2018 [facility] Triglycerides 74 mg/dL 4 (Trig/Chol/HDL) [address] [place] [address] [phone] Cholesterol 147 mg/dL 5 HDL Cholesterol 44.8 mg/dL 6 LDL Cholesterol 87 mg/dL 7 Xray 09/22/2018 [facility] Hip Left 2 Views And <pending> [address] [facility] [place] [address] [place], [place] [id number] [phone] Lipid Panel - 10/07/2017 [facility] Creatine Kinase(CK) <pending > [facility] [address] [place] [address] [phone] Lipid Profile 08/20/2016 [facility] Triglycerides 85 mg/dL N 8 (Trig/Chol/HDL) [address] [place], [place] [id number] [phone] Cholesterol 168 mg/dL N 9 HDL Cholesterol 43.5 mg/dL N 10 LDL Cholesterol 108 mg/dL N 11 1 Standard intensity warfarin therapeutic range: 2.0-3.0 High intensity warfarin therapeutic range: 2.5-3.5 2 Because ethnic data is not always readily available, this report includes an eGFR for both -Americans and non- Americans. The National Kidney Disease Education Program (NKDEP) does not endorse the use of the MDRD equation for patients that are not between the ages of 18 and 70, are , have extremes of body size, muscle mass, or nutritional status, or are non- or non-. According to the National Kidney Foundation, irrespective of diagnosis, the stage of the disease is based on the level of kidney function: Stage Description GFR(mL/min/1.73 m(2)) 1 Kidney damage with normal or decreased GFR 90 2 Kidney damage with mild decrease in GFR 60-89 3 Moderate decrease in GFR 30-59 4 Severe decrease in GFR 15-29 5 Kidney failure <15 (or dialysis) 3 SEE RESULT BELOW Name: ANEUDY EWING III : [address]: Elisa Davila MD Acct: [id number] Unit: [id number] AGE: 63 Location: [facility] Re10/27/18 SEX: M Status: REG REF SPEC: [id number] MARY: 10/27/[address]: Elisa Davila MD REQ: [id number] RECD: 10/27/18 STATUS: COMP _ SOURCE: URINE SPDESC: ORDERED: Urine Culture QUERIES: Urine Source: Random Procedure Result Reported Site Urine Culture Final 10/28/18- 1326 ML No Growth (<1,000 CFU/mL) * ML - Main Lab . END OF REPORT DEPARTMENT OF PATHOLOGY, [address] [place] [address] Arturo Cordon M.D. Director [facility] # [id number] 4 Desirable: <150 Borderline High: 150-199 High: 200-499 Very High: >500 5 Desirable: <200 Borderline High: 200-239 High: >239 6 Low: <40 Desirable: 40-60 High: >60 7 Desirable: <100 Near Optimal: 100-129 Borderline High: 130-159 High: 160-189 Very High: >189 8 Desirable <150 Borderline high 150-199 High 200-499 Very High >500 9 Desirable <200 Borderline high 200-239 High >239 10 Low <40 Desirable: 40-60 High: >60 11 Desirable: <100 mg/dL Near Optimal: 100-129 mg/dL Borderline High: 130-159 mg/dL High: 160-189 mg/dL Very High: >189 mg/dL Procedures Date Code Description Status 10/27/2018 43360 EKG Tracing & Interpretation Completed 10/07/2017 42920 EKG Tracing & Interpretation Completed 09/30/2017 57117 ECHO Transthoracic, Real-Time 2D With Doppler And Color Completed Flow 09/30/2017 44382 ECHO Transthoracic, Real-Time 2D With Doppler And Color Completed Flow 08/03/2016 32376 ECHO Stress Test Incl Perf Contiuous ekg Monitoring W/Phys Completed Superv 06/04/2016 82287 EKG Tracing & Interpretation Completed 11/11/2013 94104 Treadmill Interp/Report Only Completed 11/11/2013 50900 Stress Test Supervsn W/Out I/R Completed 02/05/2013 58365 EKG Tracing & Interpretation Completed Encounters Type Date Location Provider Dx Diagnosis Office Visit 10/27/2018 [facility] Jyoti Holden, I10 Essential ( primary) 1:10p Of Anjelica Loyd hypertension I25.10 Athscl heart disease of [place] coronary artery w/o ang pctrs E78.5 Hyperlipidemia, unspecified Z01.810 Encounter for preprocedural cardiovascular examination Office Visit 09/22/2018 2:00p [facility] Elisa Giovanni, M25.552 Pain in left [facility] M.D. hip M16.12 Unilateral primary osteoarthritis, left hip Office Visit 10/07/2017 2:00p [facility] Jyoti Holden, I25.10 Athscl heart Of [employer] M.D. disease of [place] coronary artery w/o ang pctrs I25.2 Old myocardial infarction E78.00 Pure hypercholesterolemia, unspecified I10 Essential (primary) hypertension Office Visit 08/20/2016 8:30a [facility] Jyoti Holden, I25.2 Old myocardial Of [employer] M.D. infarction I25.10 Athscl heart disease of [place] coronary artery w/o ang pctrs E78.01 Familial hypercholesterolemia I10 Essential (primary) hypertension Z72.0 Tobacco use Office Visit 06/04/2016 2:00p [facility] Jyoti Holden, I25.10 Athscl heart Of [facility] M.D. disease of [place] coronary artery w/o ang pctrs E78.01 Familial hypercholesterolemia I10 Essential (primary) hypertension Z72.0 Tobacco use I25.2 Old myocardial infarction Office Visit 11/11/2013 10:56a [facility] Matheus Lopes, 413.9 Angina Pectoris Assocroya M.D. Other Unspec Hospitalists 414.01 Coronary Atherosclerosis Ione Office Visit 11/10/2013 10:54a [facility] Will Smith 413.9 Angina Assoc,roya [place] M.D. Pectoris Other Hospitalists Hospitalist Unspec 414.01 Coronary Atherosclerosis Ione Office Visit 02/05/2013 [place] Jyoti Holden, 414.01 Coronary 2:45p Cardiology Of .D. Atherosclerosis [facility] Ione 272.0 Hypercholesterolemia Pure 401.1 Hypertension Benign 305.1 Tobacco Use Disorder Plan of Treatment Future Appointment(s):11/22/2018 9:30 am - Elisa Davila M.D. at [facility]11/09/2018 8:00 am - FRANCISCO Goodrich at [facility]11/09/2018 8:00 am - DAPHNE Garcia at [facility]11/09/2018 8:00 am - DAPHNE Cade at [facility]11/09/2018 8:00 am - [facility] - Elisa Davila M.D.M25.552 Pain in left hipFollow up:Follow up : 2 weeks after epejyufY60.12 Unilateral primary osteoarthritis, left hip
[2018-11-09] MEDS ORDERED: Acetaminophen TAB* 325 MG PO ONE (06:00)
[2018-11-09] MEDS ORDERED: Ibuprofen TAB* 400 MG PO ONE (06:00)
[2018-11-09] MEDS ORDERED: Gabapentin CAP(*) 300 MG PO ONE (06:00)
[2018-11-09] MEDS ORDERED: Lactated Ringers 1000 ML Bag* 1,000 ML IV SCH (06:00)
[2018-11-09] MEDS ORDERED: Famotidine IV* 10 MG/ML 2 ML (20 mg) IV ONE (06:00)
[2018-11-09] MEDS ORDERED: Acetaminophen TAB* 325 MG ONE (06:20)
[2018-11-09] MEDS ORDERED: Gabapentin CAP(*) 300 MG ONE (06:20)
[2018-11-09] MEDS ORDERED: Ibuprofen TAB* 400 MG ONE (06:20)
[2018-11-09] MEDS ORDERED: Famotidine IV* 10 MG/ML 2 ML (20 mg) ONE (06:21)
[2018-11-09] MEDS ORDERED: Buffered Lidocaine 1% SYRIN* 1 ML/SYRINGE INTRADERM ONE (06:21)
[2018-11-09] MEDS ORDERED: ceFAZolin 2 GM in NS PREMIX(*) 2 GM/100 ML BAG IVPB ONE (06:21)
[2018-11-09] MEDS ORDERED: Dexamethasone IV* 4 MG/ML 1 ML (4 MG) ONE (07:02)
[2018-11-09] MEDS ORDERED: fentaNYL* 50 MCG/ML 2 ML VIAL (100 MCG VIAL) ONE ×3 (07:02→09:24)
[2018-11-09] MEDS ORDERED: Propofol* 10 MG/ML 20 ML BTL ONE (07:02)
[2018-11-09] MEDS ORDERED: Midazolam* 1 MG/ML 10 ML VIAL (10 MG) ONE (07:02)
[2018-11-09] MEDS ORDERED: Lidocaine 2% MPF* 2 ML VIAL ONE (07:02)
[2018-11-09] MEDS ORDERED: KETAMINE HCL* 50 MG/ML 10 ML VIAL ONE (07:02)
[2018-11-09] MEDS ORDERED: ROPIVACAINE 5 MG/ML 30 ML BTL (0.5%) ONE ×2 (07:02→07:35)
[2018-11-09] MEDS ORDERED: Ropivacaine (OR use only) 2 MG/ML 10 ML ONE (07:02)
[2018-11-09] MEDS ORDERED: Ondansetron INJ* 2 MG/ML VIAL ONE (07:02)
[2018-11-09] MEDS ORDERED: Cisatracurium* 2 MG/ML MDV 5 ML ONE (07:20)
[2018-11-09] MEDS ORDERED: Phenylephrine 10 MG/ML VIAL* 1 ML VIAL ONE (07:20)
[2018-11-09] MEDS ORDERED: Lidocaine 2% PF * 5 ML VIAL ONE (08:51)
[2018-11-09] MEDS ORDERED: Propofol* 500 MG/50 ML BTL ONE (08:51)
[2018-11-09] MEDS ORDERED: Naloxone* 0.4 MG/ML 1 ML VIAL IV PRN (09:55)
[2018-11-09] MEDS ORDERED: fentaNYL* 50 MCG/ML 2 ML VIAL (100 MCG VIAL) IV PRN (09:55)
[2018-11-09] MEDS ORDERED: Ondansetron INJ* 2 MG/ML VIAL IV PRN ×2 (09:55→10:38)
[2018-11-09] MEDS ORDERED: HYDROmorphone INJ1* 1 MG/ML SYRINGE IV PRN (09:55)
[2018-11-09] MEDS ORDERED: HYDROmorphone INJ1* 1 MG/ML SYRINGE ONE (10:06)
[2018-11-09] MEDS ORDERED: Morphine 4 MG/ML VIAL (1 ml) 4 MG/ML VIAL IV PRN (10:38)
[2018-11-09] MEDS ORDERED: diPHENhydraMINE PO* 25 MG PO PRN (10:38)
[2018-11-09] MEDS ORDERED: Cyclobenzaprine TAB* 10 MG PO PRN (10:38)
[2018-11-09] MEDS ORDERED: Ondansetron ODT TAB* 4 MG PO PRN (10:38)
[2018-11-09] MEDS ORDERED: traMADol TAB* 50 MG PO PRN (10:38)
[2018-11-09] MEDS ORDERED: diPHENhydraMINE IV* 50 MG/ML 1 ml VIAL (BENADRYL) IV PRN (10:38)
[2018-11-09] MEDS ORDERED: Bisacodyl SUPP* 10 MG SUPP PR PRN (10:38)
[2018-11-09] MEDS ORDERED: oxyCODONE TAB* 5 MG TAB PO PRN (10:38)
[2018-11-09] MEDS ORDERED: Magnesium Hydroxide LIQ* 30 ML UDC PO PRN (10:38)
[2018-11-09] MEDS ORDERED: Polyethylene Glycol 3350* 17 GM PACKET PO PRN (10:38)
[2018-11-09] MEDS ORDERED: diPHENhydraMINE LIQ* 12.5 MG/5 ML UDC PO PRN (10:38)
[2018-11-09] MEDS ORDERED: traZODone TAB* 50 MG TAB PO PRN (10:38)
[2018-11-09] MEDS: Lactated Ringers 1000 ML Bag* 1,000 ML IV SCH ×2 (12:42→22:19)
--- NOTE | 2018-11-09 14:27 | CONS ---
[facility] MEDICINE CONSULTATION REPORT: DATE OF CONSULT: 11/09/18 PROVIDER: Kayleen Proctor NP ATTENDING PHYSICIAN: Dr. Davila. CONSULTING PHYSICIAN: Dr. Nimo Christensen (dictated by Kayleen Proctor NP) REASON FOR CONSULT: Co-management of chronic medical conditions. HISTORY OF PRESENT ILLNESS: Mr. Angelo is a 63-year-old male with past medical history significant for hypertension, coronary artery disease, anxiety, high cholesterol, and prior OK, who presented [place] [facility] [place] an elective left total hip arthroplasty with Dr. Davila. Please see dictated H and P from DAPHNE Nash for complete details. In brief, the patient had ongoing pain, failed conservative measures. Therefore, opted for an elective left total hip arthroplasty. In the immediate preoperative period, the patient had no complaints. He denies any fever, chills, nausea, vomiting, or diarrhea. Denies any abdominal pain. Denies any dysuria or urinary frequency. Denies any chest pain or shortness of breath. Due to his history of coronary artery disease, hyperlipidemia and hypertension, we were asked to help co-manage his chronic medical condition during this hospitalization. PAST MEDICAL HISTORY: 1. Hypertension. 2. Coronary artery disease. 3. Anxiety. 4. Hyperlipidemia. 5. Prior OK. PAST SURGICAL HISTORY: 1. Umbilical hernia repair. 2. Left knee surgery. 3. Cardiac stent in 2009. HOME MEDICATIONS: 1. Rosuvastatin 40 mg p.o. daily. 2. Lisinopril 10 mg p.o. daily. 3. Aspirin 81 mg p.o. daily. 4. Lexapro 20 mg p.o. daily. ALLERGIES: No known drug allergies. FAMILY HISTORY: Father at the age of 52 from an [place]. Mother with a history of hypertension and stroke, currently alive in her 80s. Grandmother with history of diabetes. No reported history of cancer. SOCIAL HISTORY: The patient is . He is a retired teacher. He denies any alcohol or illicit drug use. He does smoke 1 to 2 cigars daily. Surrogate decision maker in the event he is unable to make his own decisions is his . He is a full code. REVIEW OF SYSTEMS: An 11-point review of systems is completed, all pertinent positives are mentioned in the HPI, otherwise are negative. PHYSICAL EXAM: General: At this time, Mr. Angelo is drowsy, resting on the stretcher in PACU. He has no complaints. Vital Signs: Blood pressure 110/64, heart rate was 62, respirations are 16, O2 saturation 100%, temperature 96.8. HEENT: Head is atraumatic, normocephalic. Eyes: EOMs are intact. Sclerae anicteric and not pale. Oral mucosa appeared to be moist. Neck is supple. Lungs are clear to auscultation bilaterally. No wheezes, rales, or rhonchi. Cardiac: S1, S2, regular rate and rhythm. No murmurs, rubs, or gallops. Abdomen is soft, nontender, bowel sounds are present x4. Extremities: He is able to move all extremities. Pedal pulse are +1 bilaterally. Radial pulses + 2. Skin is intact. He does have a dressing that is dry and intact to his left hip. DIAGNOSTIC STUDIES/LAB DATA: CBC from 10/27/18, WBC 4.8, RBC 5.43, hemoglobin 16.4, hematocrit 49, platelet count was 185. INR was 0.91. BMP, sodium 139, potassium 4.4, chloride 105, carbon dioxide 26, anion gap was 8, BUN was 16, creatinine 1.15, glucose was 85, calcium was 9.8. ASTs were 25, ALTs were 25, alkaline phosphatase was 80. Urine was within normal limits with exception to urine blood was 1+ and urine wbc's were 2+. IMPRESSION AND PLAN: Mr. Angelo is a 63-year-old male with a past medical history significant for hypertension, coronary artery disease, anxiety, high cholesterol, and prior myocardial infarction, who presented for an elective left total hip arthroplasty with Dr. Davila. In the immediate postoperative period, the patient has no complaints. Our recommendations are as follows: 1. Status post left total hip arthroplasty: Management per Orthopedics. PT/ OT per Orthopedics. DVT prophylaxis as per Orthopedics. 2. Hypertension. I would hold his lisinopril at this time as his blood pressure systolically is in the 110s. 3. High cholesterol: The patient should continue on rosuvastatin as previously prescribed. 3. Coronary artery disease. The patient should resume aspirin 81 mg p.o. daily when cleared by Ortho. 4. Anxiety. The patient should continue on Lexapro 20 mg p.o. daily. 5. DVT prophylaxis as per Ortho. 6. Diet. The patient can have a regular diet. 7. Code status: He is a full code. TIME SPENT: Time spent on this consultation was 45 minutes, greater than half the time was spent at the bedside reviewing events leading thus far to this hospitalization, performing physical exam, and reviewing my plan of care. I have discussed this with my attending Dr. Nimo Christensen, she is in agreement with my plan. KAYLEEN PROCTOR, AEROPHYSICS ENGINEER [id number]/CPS #: [id number] AROLDO
--- NOTE | 2018-11-09 14:58 | PN ---
Progress Note - Progress Note Date of Service: 11/09/18 Note: Patient was walking with physical therapy when I arrived and reports doing well. He is using a walker with one assist. Sensation is intact in the left foot with 2+ DP pulse. No foot drop noted and no SOB, CP or calf pain reported. We will continue to monitor.
[2018-11-09] MEDS ORDERED: Acetaminophen TAB* 325 MG PO PRN (15:00)
[2018-11-09] MEDS: ceFAZolin 1 GM ADVAN(*) 1 GM in NS 0.9% 50 ML* 50 ML IVPB SCH (16:38)
--- NOTE | 2018-11-09 17:50 | OP ---
Operative Report - Blank - Operative Report Date of Operation: 11/09/18 Note: ALEXIS EWING III 1955 Date Of Surgery: 11/09/18 Elisa Davila MD Vascular Surgery Physician: Zach SERNA did help throughout the procedure with preparation of the hip, wound retraction, manipulation of the hip, and wound closure. Anesthesiologist: Guadalupe Quintanilla MD Anesthesia Type: General Preoperative Diagnosis: Left severe degenerative osteoarthritis of the hip Postoperative Diagnosis: As above Procedure Performed: Left Total Hip Arthroplasty Complications: None Specimen: Femoral head and acetabular reamings sent to pathology. Hardware used: This is uncemented Janet total hip arthroplasty hardware for the femur a size 6 accolade II with 127 neck angle femoral component, for the acetabulum a size 52E trident II tritanium cluster hole shell, for the insert a size 36 E polyethylene trident x3 insert, and for the femoral head a size 36 +0 ceramic V40 femoral head. Brief history/Indication: ALEXIS EWING III was known in clinic and had a history of severe left hip pain. He failed conservative treatment with anti- inflammatories, pain pills, intra-articular injections and physical therapy. He elected to undergo left total hip arthroplasty due to continued pain and decreased quality of life. Radiographs showed severe end stage osteoarthritis of the hip with bone on bone contact. Informed consent was obtained from the patient. He understood the risks of surgery included but were not limited to: bleeding, infection, damage to nearby structures, intraoperative fracture, nerve palsy, failure of the hardware, early loosening, stiffness or loss of motion, dislocation, leg length discrepancy, anesthesia complications, stroke, heart attack, blood clot and . He wished to proceed. Intra-Operative findings: Intraoperatively the patient was noted to have severe loss of cartilage of the acetabulum and femoral head. He had extensive osteophyte formation. Description of the Procedure: ALEXIS EWING III was identified in the preanesthesia unit. His left hip was marked as the correct operative side. Informed consent was signed and placed in the chart. The patient was taken to the operating room and placed under anesthesia without complication. A mcgarry catheter was placed. The patient was placed on the peg board with all bony prominences well padded. The left lower extremity was prepped and draped in the usual sterile fashion. Preoperative time -out was made to correctly identify the patient, side and site. Appropriate intraoperative antibiotics were given within one hour of incision. A standard posterior incision was made and carried sharply down to the lateral fascia. A new 10 blade was used to make an incision in the fascia in line with the skin incision. A charnley retractor was placed. The piriformis and conjoined tendons were identified and elevated off the posterolateral femur using electrocautery. These were tagged with number 5 Ethibond. Next electrocautery was used to make a posterolateral capsular flap and this was tagged with number 5 Ethibonds. The hip was carefully dislocated. Lesser trochanter to the center of the femoral head was measured at 55 mm. The oscillating saw was used to make the femoral neck cut. The femoral head was carefully removed. The femur was retracted anteriorly and the acetabular retractors were placed. Long-handled knife was used to sharply remove any remaining labrum from the acetabular rim. The acetabulum was sequentially reamed up to a size 51. A bleeding subchondral bone bed was obtained. A trial liner was placed and had excellent fit and stability. A 52E trident II tritanium cup was placed and had excellent stability with appropriate anteversion and abduction angle. A size 36E polyethylene liner was impacted into the acetabular shell. The liner was checked for stability and was stable. Next attention was turned to preparation of the femoral canal. A canal finder was used to enter the proximal femur. The femoral canal was sequentially broached up to a size 6 femoral broach trial. A trial neck and 36 +0 trial femoral head was chosen. Lesser trochanter to center of the femoral head measurement was satisfactory. The hip was reduced and taken through a range of motion. The hip was stable in all positions with good soft tissue tension and appropriate leg lengths. The hip was dislocated and all trials were removed. The final implant chosen was a accolade II size 6 with 127 neck angle. This stem was impacted into the femoral canal without difficulty. The stem was stable with appropriate anteversion. The femoral head chosen was a 36 +0 ceramic head. The head was impacted onto the femoral neck without difficulty. The final lesser trochanter to center of the femoral head measurement was satisfactory. The hip was reduced and taken through a range of motion. The hip was stable in all positions with good soft tissue tension and appropriate leg lengths. The hip was copiously irrigated with sterile saline. The previously tagged capsule and tendons were repaired to the posterolateral femur through two trochanteric drill holes. The lateral fascia layer was closed using number 1 vicryls. The rest of the incision was closed in a layered fashion using 0 and 2-0 vicryls. The skin was closed using 3-0 monocryl suture and Dermabond. Sterile adaptic, 4x4s and paper tape was used to cover the incision. The patients anesthesia was reversed without difficulty. He was taken to the PACU in stable condition. Intended weight-bearing will be as tolerated with posterior hip precautions.
[2018-11-09] MEDS: Docusate CAP* 100 MG PO SCH (22:18)
[2018-11-09] MEDS: Magnesium Hydroxide LIQ* 30 ML UDC PO SCH (22:18)
[2018-11-09] MEDS: oxyCODONE/Acetamin 5/325 MG* TAB PO PRN (22:19)
[2018-11-09] MEDS: Apixaban* 2.5 MG TAB PO SCH (22:19)
[2018-11-10] MEDS: ceFAZolin 1 GM ADVAN(*) 1 GM in NS 0.9% 50 ML* 50 ML IVPB SCH ×2 (00:23→09:06)
[2018-11-10 07:12] LABS: Hematocrit 40 % (42-52); Hemoglobin 14.2 g/dL (14.0-18.0); Mean Platelet Volume 8.2 fL (7.4-10.4); Platelet Count 159 10^3/uL (150-450)
[2018-11-10 07:28] LABS: BUN/Creatinine Ratio 14.4 (8-20); Calcium 8.9 mg/dL (8.6-10.3); EGFR African American 75.9 (>60); EGFR Non-African American 62.8 (>60); Potassium 4.3 mmol/L (3.5-5.0)
[2018-11-10] MEDS: oxyCODONE/Acetamin 5/325 MG* TAB PO PRN ×3 (08:26→17:28)
[2018-11-10] MEDS ORDERED: Lisinopril TAB* 10 MG PO SCH (09:00)
[2018-11-10] MEDS ORDERED: Escitalopram * 10 MG TAB PO SCH (09:00)
[2018-11-10] MEDS ORDERED: Atorvastatin* 80 MG TAB PO SCH (09:00)
[2018-11-10] MEDS: Magnesium Hydroxide LIQ* 30 ML UDC PO SCH (09:01)
[2018-11-10] MEDS: Docusate CAP* 100 MG PO SCH (09:02)
[2018-11-10] MEDS: Apixaban* 2.5 MG TAB PO SCH (09:02)
--- NOTE | 2018-11-10 11:11 | DS ---
Orthopedic Discharge Summary - Discharge Summary Date of Admission:11/09/18 Date of Discharge: 11/10/18 Date of Surgery: 11/09/18 Attending Orthopedic Provider: Dr. Davila Pre-operative Diagnosis: Degenerative arthritis left hip Operative Procedure: Left total hip arthroplasty Disposition of Patient: home Condition of Patient: stable History: ALEXIS EWING III is a 63 year old M with years of increasingly severe left hip pain. Patient has failed conservative management and has elected to undergo a left total hip replacement Hospital Course: ALEXIS was admitted to [facility] on 11/09/18. Patient underwent a left total hip without complication followed by a brief recovery in PACU and transfer to the Short Stay Surgical Unit in stable condition. Post-op day 1: patient was alert and in no acute distress. Dressing was clean, dry and intact. Operative extremity dorsiflexion and plantarflexion intact, sensation intact to light touch distally,dressing was changed, incision was clean, dry and intact. Patient was deemed to be medically and orthopedically stable for discharge. Physical therapy goals were met. Home Medications Medication Instructions Recorded Confirmed Type Lisinopril TAB* [Prinivil TAB 10 10 mg PO QAM 05/07/12 11/09/18 History MG*] Escitalopram Oxalate [Lexapro 10 30 mg PO QAM 10/27/18 11/09/18 History mg] Rosuvastatin Calcium [Crestor] 40 mg PO QAM 10/27/18 11/09/18 History Apixaban* [Eliquis*] 2.5 mg PO BID #60 tab 11/10/18 Rx Docusate CAP* [Colace Cap*] 100 mg PO BID cap 11/10/18 Rx oxyCODONE/Acetamin 5/325 MG* 1 - 2 tab PO Q4H PRN #70 tab MDD 10 11/10/18 Rx [Percocet 5/325 TAB*] Discharge home today after afternoon PT WBAT LLE Eliquis for DVT prophylaxis Percocet- rx Tops Triphammer Out patient PT Follow up 10-14 days as scheduled with Dr. Davila
[2018-11-10 16:10] VITALS: BP 102/57
== END 2018-11-10 18:45 | disposition home or self-care (01) | DRG 301 ==
LOC: AA 05:43 → SSU 12:49
PROVIDERS: ADMIT Orthopaedic Surgery Adult Reconstructive Orthopaedic Surgery; ATTEND Orthopaedic Surgery Adult Reconstructive Orthopaedic Surgery
PROC: 0SRB04A Replacement of Left Hip Joint with Ceramic on Polyethylene Synthetic Substitute, Uncemented, Open Approach (ICD-10-PCS; principal; 2018-11-09 07:30)
DX: M16.12 Unilateral primary osteoarthritis, left hip (principal); I10 Essential (primary) hypertension; I25.10 Atherosclerotic heart disease of native coronary artery without angina pectoris; F41.9 Anxiety disorder, unspecified; E78.00 Pure hypercholesterolemia, unspecified; E78.5 Hyperlipidemia, unspecified; N40.0 Benign prostatic hyperplasia without lower urinary tract symptoms; F17.290 Nicotine dependence, other tobacco product, uncomplicated; Z95.5 Presence of coronary angioplasty implant and graft; I25.2 Old myocardial infarction; Z79.82 Long term (current) use of aspirin; Z79.899 Other long term (current) drug therapy; Z82.49 Family history of ischemic heart disease and other diseases of the circulatory system; Z82.3 Family history of stroke; Z82.69 Family history of other diseases of the musculoskeletal system and connective tissue; Z83.3 Family history of diabetes mellitus; M25.752 Osteophyte, left hip
CPT/HCPCS: 36415; 80048; 85014; 85018; 85049; A9270-GY; C1713; C1776; J0690; J1100; J1170; J2250; J2405; J2704; J2795; J3010

== ENCOUNTER 2018-11-17 21:27 | Emergency (ER) | payer BC ==
--- NOTE | 2018-11-17 22:45 | ED ---
Allergic Reaction/Systemic - HPI Summary HPI Summary: The pt is 63 yr old male presenting to [facility] c/o allergic reaction and lip swelling beginning at 1100 this morning. He states his lips gradually swelled up throughout the day. He states that he may have been stung by a bee on his lower left lip. He states that he is not currently feeling any pain and notes that his breathing is normal. He denies throat swelling, tongue swelling. The pt takes lisionpril, percocet, and heart medication and also mentions that he had hip surgery recently. He has Hx of CAD, Angina, HTN, AK, and HLD. - History of Current Complaint Chief Complaint: EDAllergicReaction Time Seen by Provider: 11/17/18 22:06 Hx Obtained From: Patient Onset/Duration: Gradual Onset, Started hours ago, Still Present, Worse Since - 1100 this morning. Timing: Constant, Lasting Hours Severity Currently: None - pain denied Pain Intensity: 0 Pain Scale Used: 0-10 Numeric Location: Discrete @ - lips Character: Swelling Associated Signs And Symptoms: Positive: Other: - no tongue/throat swelling. Negative: Difficulty Breathing, Throat Tightening - Allergies/Home Medications Allergies/Adverse Reactions: Allergies Allergy/AdvReac Type Severity Reaction Status Date / Time No Known Allergies Allergy Verified 11/09/18 06:30 PMH/Surg Hx/FS Hx/Imm Hx Endocrine/Hematology History: Denies: Hx Diabetes, Hx Thyroid Disease Cardiovascular History: Reports: Hx Angina, Hx Coronary Artery Disease - STENT 2009, Hx Hypertension, Hx Myocardial Infarction - 2009, Other Cardiovascular Problems/Disorders - HIGH CHOLESTEROL Denies: Hx Hypercholesterolemia, Hx Pacemaker/ICD, Hx Peripheral Vascular Disease Respiratory History: Denies: Hx Asthma, Hx Chronic Obstructive Pulmonary Disease (COPD) GI History: Denies: Hx Ulcer Musculoskeletal History: Denies: Hx Arthritis, Hx Rheumatoid Arthritis, Hx Osteoporosis Sensory History: Reports: Hx Contacts or Glasses Denies: Hx Cataracts, Hx Glaucoma, Hx Hearing Aid Opthamlomology History: Reports: Hx Contacts or Glasses Denies: Hx Cataracts, Hx Glaucoma Neurological History: Denies: Hx Headaches, Hx Seizures, Hx Transient Ischemic Attacks (TIA) Psychiatric History: Denies: Hx Anxiety, Hx Depression - Surgical History Surgery Procedure, Year, and Place: Left knee repair. Two cardiac stents. Umbilical Hernia repair Hx Anesthesia Reactions: No Infectious Disease History: No Infectious Disease History: Denies: Hx Clostridium Difficile, Hx Hepatitis, Hx Human Immunodeficiency Virus (HIV), Hx of Known/Suspected MRSA, Hx Shingles, Hx Tuberculosis, Hx Known/ Suspected VRE, Hx Known/Suspected VRSA, History Other Infectious Disease, Traveled Outside the [place] in Last 30 Days - Family History Known Family History: Positive: Hypertension, Diabetes - Social History Alcohol Use: Occasionally Alcohol Amount: 1 beer every two days or so. Hx Substance Use: Yes - alcohol Substance Use Type: Reports: None Hx Tobacco Use: Yes Smoking Status (MU): Never Smoked Tobacco Type: Cigars Amount Used/How Often: 1 CIGAR/DAY Have You Smoked in the Last Year: Yes Review of Systems Positive: Other - Positive - Lip swelling. Negative - throat/tongue swelling Positive: Other - Negative - Dyspnea All Other Systems Reviewed And Are Negative: Yes Physical Exam - Summary Physical Exam Summary: VITAL SIGNS: Reviewed. GENERAL: Patient is a well-developed and nourished male who is lying comfortable in the stretcher. Patient is not in any acute respiratory distress. HEAD AND FACE: No signs of trauma. No ecchymosis, hematomas or skull depressions. No sinus tenderness. EYES: PERRLA, EOMI x 2, No injected conjunctiva, no nystagmus. EARS: Hearing grossly intact. Ear canals and tympanic membranes are within normal limits. MOUTH: Oropharynx within normal limits. Severe lip swelling consistent with angioedema. Normal tongue and throat exam. NECK: Supple, trachea is midline, no adenopathy, no JVD, no carotid bruit, no c- spine tenderness, neck with full ROM CHEST: Symmetric, no tenderness at palpation LUNGS: Clear to auscultation bilaterally. No wheezing or crackles. Normal lung exam. CVS: Regular rate and rhythm, S1 and S2 present, no murmurs or gallops appreciated. ABDOMEN: Soft, non-tender. No signs of distention. No rebound no guarding, and no masses palpated. Bowel sounds are normal. EXTREMITIES: FROM in all major joints, no edema, no cyanosis or clubbing. NEURO: Alert and oriented x 3. No acute neurological deficits. Speech is normal and follows commands. SKIN: Dry and warm Triage Information Reviewed: Yes Vital Signs On Initial Exam: Initial Vitals Temp Pulse Resp BP Pulse Ox 99 F 67 18 126/67 98 11/17/18 21:37 11/17/18 21:37 11/17/18 21:37 11/17/18 21:37 11/17/18 21:37 Vital Signs Reviewed: Yes Diagnostics - Vital Signs Vital Signs Temp Pulse Resp BP Pulse Ox 11/17/18 21:47 62 143/80 98 11/17/18 21:45 67 98 11/17/18 21:37 99 F 67 18 126/67 98 - Laboratory Lab Statement: Any lab studies that have been ordered have been reviewed, and results considered in the medical decision making process. Re-Evaluation - Re-Evaluation Second Eval Re-Evaluation Time: 01:15 Change: Improved Comment: Angioedema has not progressed, and is slightly improved. He denies throat swelling and drooling. He will be discharged to home and is advised to stop taking lisinopril. Allergic Reaction Course/Dx - Course Course Of Treatment: The pt is 63 yr old male presenting to [facility] c/o allergic reaction and lip swelling and states that his lips gradually swelled up throughout the day starting in the morning. Throating/tongue swelling and difficulty breathing are all denied. Patient is on lisinopril. He was given 2 units of FFP. The pt was re-evaluated at 0125 and his angioedema did not progress while in the ED and improved slightly. He was discharged home, and advised to stop taking Lisinopril and to consult his social group worker within 3 days for replacement medication. The pt is agreeable with this plan. - Diagnoses Provider Diagnoses: NATALIE inhibitor-aggravated angioedema Discharge - Sign-Out/Discharge Documenting (check all that apply): Patient Departure - Discharged Patient Received Moderate/Deep Sedation with Procedure: No - Discharge Plan Condition: Stable Disposition: HOME Patient Education Materials: Angioedema (ED) Referrals: Miguel Small MD [Primary Care Provider] - 3 Days Additional Instructions: Patient is advised to stop taking lisinopril. Consult your social group worker for replacement medication. Follow-up with your PCP in 3 days. Return to the ED for any new or worsening symptoms. - Attestation Statements Document Initiated by Scribe: Yes Documenting Scribe: Sebastian Spence Provider For Whom Scribe is Documenting (Include Credential): Olivier Irvin MD Scribe Attestation: Sebastian Steele, scribed for Olivier Irvin MD on 11/18/18 at 0235. Status of Scribe Document: Ready
[2018-11-18 00:44] VITALS: BP 138/80
== END 2018-11-18 01:42 | disposition home or self-care (01) ==
LOC: ED 21:27
DX: T78.3XXA Angioneurotic edema, initial encounter (principal); I25.119 Atherosclerotic heart disease of native coronary artery with unspecified angina pectoris; I10 Essential (primary) hypertension; I25.2 Old myocardial infarction; E78.5 Hyperlipidemia, unspecified; F17.290 Nicotine dependence, other tobacco product, uncomplicated; Y92.9 Unspecified place or not applicable
CPT/HCPCS: 36415; 86850; 86900; 86901; 86927; 99283; P9017